=== PATIENT | female | born 1955 | race Native Hawaiian/Other Pacific Islander ===

== ENCOUNTER 2020-01-19 08:05 | Emergency (ER) | payer OTHER ==
[~2020-01-19] VITALS: Ht 165.1 cm; Wt 65.3 kg
[2020-01-19 08:05] VITALS: TEMP 98.4
[~2020-01-19 08:05] MED LIST: ALBU90AE13 INH; AMLODIPINE BESYLATE PO; CARV25TA PO; CLON1TAB18 PO; ENOX40IN SC; LEVO0.1519 PO; LITH300C3 PO; LOKELMA5 GM PO; NYSTATIN/TRIAMC1 CRE EX; OLAN10INJ IM; TYLENOL325 MG PO; VITAMIN D31000 UNI4 PO; VRAYLAR3 MG PO; ZYPREXA ZYDI10 MG PO; [UNRECOGNIZED DRUG - CODE] EX
[2020-01-19 08:39] LABS: PLATELET COUNT 239 K/uL (152-353)
[2020-01-19 08:56] LABS: POTASSIUM 6.9 mmol/L (3.6-5.2)
[2020-01-19] MEDS ORDERED: OLAN10INJ IM (10:38)
[2020-01-19] MEDS ORDERED: OLANZAPINE5 MG PO (10:38)
[2020-01-19 10:55] VITALS: BP 132/72
== END 2020-01-19 10:55 | disposition short-term general hospital (02) ==
LOC: ED 08:08
PROVIDERS: Family Medicine
DX: N17.8 Other acute kidney failure (principal); N18.9 Chronic kidney disease, unspecified
CPT/HCPCS: 36415; 80053; 85027; 93005; 96374; 96375; 99284; J1815; J7060